=== PATIENT | female | born 2000 ===

== ENCOUNTER 2021-05-24 07:59 | Outpatient (CLI) | payer OTHER | END 2021-05-24 08:00 | disposition home or self-care (01) | LOC: ULT 07:59 | PROVIDERS: ATTEND Physician Assistant | DX: R10.13 Epigastric pain (principal); N93.9 Abnormal uterine and vaginal bleeding, unspecified; R93.89 Abnormal findings on diagnostic imaging of other specified body structures | CPT/HCPCS: 76700; 76856 ==